=== PATIENT | male | born 2000 | race American Indian/Alaskan Native ===

== ENCOUNTER 2019-08-23 00:46 | Emergency (ER) | payer SELFPAY ==
[2019-08-23] MEDS ORDERED: LIDOCAINE-MPF (1%) 10 MG/1 ML VIAL 5 ML INFILTRATI ONE (03:44)
--- NOTE | 2019-08-23 03:47 | Emergency Department Report ---
ED Male HPI - General Chief complaint: Urogenital-Male Stated complaint: BLOOD IN URINE Time Seen by Provider: 08/23/19 03:43 Source: patient Mode of arrival: Ambulatory Limitations: No Limitations - History of Present Illness MD Complaint: testicle pain, penile discharge, dysuria -: Gradual, week(s) (1) - Related Data Previous Rx's Medication Instructions Recorded Last Taken Type Azithromycin [Zithromax TAB] 1,000 mg PO ONCE #2 tablet 08/23/19 Unknown Rx metroNIDAZOLE [Flagyl] 2,000 mg PO ONCE #4 tablet 08/23/19 Unknown Rx ED Review of Systems ROS: Stated complaint: BLOOD IN URINE Other details as noted in HPI ED Past Medical Hx - Past Medical History Previous Medical History?: No - Surgical History Past Surgical History?: No - Social History Smoking Status: Current Every Day Smoker Substance Use Type: Alcohol, Marijuana - Medications Home Medications: Home Medications Medication Instructions Recorded Confirmed Last Taken Type Azithromycin [Zithromax TAB] 1,000 mg PO ONCE #2 tablet 08/23/19 Unknown Rx metroNIDAZOLE [Flagyl] 2,000 mg PO ONCE #4 tablet 08/23/19 Unknown Rx ED Physical Exam - General Limitations: No Limitations ED Course Vital Signs 08/23/19 01:05 Temperature 99.5 F Pulse Rate 69 Respiratory 18 Rate Blood Pressure 135/82 O2 Sat by Pulse 100 Oximetry Critical care attestation.: If time is entered above; I have spent that time in minutes in the direct care of this critically ill patient, excluding procedure time. ED Disposition Disposition: DC- TO HOME OR SELFCARE Condition: Stable Instructions: Sexually Transmitted Diseases (ED), Safe Sex (ED), Epididymitis (ED), Dysuria (ED) Prescriptions: metroNIDAZOLE [Flagyl] 2,000 mg PO ONCE #4 tablet Azithromycin [Zithromax TAB] 1,000 mg PO ONCE #2 tablet Referrals: [facility] Depart [Outside] - 3-5 Days
[2019-08-23 04:19] VITALS: BP 133/74
== END 2019-08-23 04:00 | disposition home or self-care (01) ==
LOC: ED 00:46
DX: R31.9 Hematuria, unspecified (principal); F17.200 Nicotine dependence, unspecified, uncomplicated; F12.90 Cannabis use, unspecified, uncomplicated; Z79.899 Other long term (current) drug therapy
CPT/HCPCS: 96372; 99282; J0696